=== PATIENT | male | born 1955 | race American Indian/Alaskan Native ===

== ENCOUNTER 2016-10-11 04:50 | Emergency (ER) | payer OTHER ==
[2016-10-11] MEDS ORDERED: TORADOL IV ONE (06:27)
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
[2016-10-11 07:55] VITALS: BP 111/77
--- NOTE | 2016-10-11 09:31 | XRay Report ---
LEFT SHOULDER 3 VIEWS: HISTORY: Decrease in motion. FINDINGS: The AC joint grossly appears unremarkable. There are arthritic changes noted at the inferior aspect of the glenohumeral joint. No fracture, dislocation or soft tissue calcification. IMPRESSION: Arthritic changes inferior aspect glenohumeral joint.
== END 2016-10-11 07:47 | disposition home or self-care (01) ==
LOC: ED 04:50
DX: S29.011A Strain of muscle and tendon of front wall of thorax, initial encounter (principal); S40.022A Contusion of left upper arm, initial encounter; F17.200 Nicotine dependence, unspecified, uncomplicated; W22.8XXA Striking against or struck by other objects, initial encounter; Y93.89 Activity, other specified; Y92.89 Other specified places as the place of occurrence of the external cause; Y99.8 Other external cause status
CPT/HCPCS: 73030; 96374; 99284; J1885